=== PATIENT | female | born 1975 | race Caucasian/White ===

== ENCOUNTER 2017-03-28 08:01 | Emergency (ER) | payer SELFPAY ==
[~2017-03-28] VITALS: Ht 167.6 cm; Wt 96.3 kg
[~2017-03-28 08:01] MED LIST: ALPR-475 PO; FERR325T18 PO; TRAM-47 PO
[2017-03-28 08:02] VITALS: BP 141/92
[2017-03-28] MEDS ORDERED: FLUORESCEIN OPHTHALMIC 1 MG STRIP ONE (08:17)
[2017-03-28] MEDS ORDERED: PROPARACAINE OPHTH 0.5%, 15ML ONE (08:17)
== END 2017-03-28 08:48 | disposition home or self-care (01) ==
LOC: ED 08:39
DX: H11.421 Conjunctival edema, right eye (principal); H10.11 Acute atopic conjunctivitis, right eye
CPT/HCPCS: 99283

== ENCOUNTER 2017-08-12 08:56 | Emergency (ER) | payer SELFPAY ==
[~2017-08-12] VITALS: Ht 167.6 cm; Wt 94.9 kg
[2017-08-12] MEDS ORDERED: SODIUM CHLORIDE 0.9% 1,000 ML IV ONE (09:11)
[2017-08-12] MEDS ORDERED: ONDANSETRON 2MG/ML, 2ML IVPush ONE (09:30)
[2017-08-12] MEDS ORDERED: SODIUM CHLORIDE FLUSH 10ML SYR IVF ONE (09:30)
[2017-08-12 09:40] LABS: BASOPHILS # (AUTO) 0.03 x10^3/uL (0-0.1); BASOPHILS % (AUTO) 1 % (0-1); EOSINOPHILS % (AUTO) 3 % (1-7); LYMPHOCYTES # (AUTO) 1.18 x10^3/uL (1-3.4); LYMPHOCYTES % (AUTO) 29 % (22-44); MD NO; MEAN CORPUSCULAR HEMOGLOBIN 26.2 pg (27.0-34.8); MEAN CORPUSCULAR HGB CONC 33.7 g/dL (32.4-35.8); MEAN CORPUSCULAR VOLUME 77.8 fL (80-100); MEAN PLATELET VOLUME 7.4 fL (7.4-10.4); MONOCYTES # (AUTO) 0.27 x10^3/uL (0.2-0.8); MONOCYTES % (AUTO) 7 % (2-9); NEUTROPHILS # (AUTO) 2.44 x10^3/uL (1.8-6.8); NEUTROPHILS % (AUTO) 61 % (42-75); PLATELET COUNT 301 x10^3/uL (130-400); RED BLOOD COUNT 3.77 x10^6/uL (3.82-5.3)
[2017-08-12] MEDS ORDERED: HYDROmorphone 2 MG/ML, 1ML ONE ×4 (09:46→11:52)
[2017-08-12] MEDS ORDERED: ONDANSETRON 2MG/ML, 2ML ONE (09:46)
[2017-08-12 09:49] LABS: ALBUMIN 3.3 g/dL (3.4-5.0); ANION GAP 5 mmol/L (5-15); CALCIUM 8.2 mg/dL (8.5-10.1); CHLORIDE 110 mmol/L (98-107)
[2017-08-12 09:55] LABS: ALANINE AMINOTRANSFERASE 32 U/L (12-78); ALKALINE PHOSPHATASE 66 U/L (45-117); BILIRUBIN,TOTAL 0.4 mg/dL (0.2-1.0); CREATININE 0.62 mg/dL (0.55-1.02); TOTAL PROTEIN 6.7 g/dL (6.4-8.2)
[2017-08-12] MEDS: HYDROmorphone 1 MG/ML, 1ML IVPush PRN ×2 (09:58→12:11)
[2017-08-12 11:00] LABS: MICROSCOPIC NOT IND
[2017-08-12 11:03] LABS: CULTURE INDICATED? NO
[2017-08-12] MEDS ORDERED: OMNIPAQUE 350 MG/ML, 100ML BOTTLE ONE (11:10)
[2017-08-12 11:58] VITALS: BP 136/82
== END 2017-08-12 12:40 | disposition home or self-care (01) ==
LOC: ED 09:33
DX: L03.311 Cellulitis of abdominal wall (principal); D25.1 Intramural leiomyoma of uterus
CPT/HCPCS: 36415; 74177; 80053; 81003; 83690; 84703; 85025; 96361; 96374; 96375; 96376; 99285; G0260; J1170; J2405; J7030; Q9967

== ENCOUNTER 2018-11-13 19:06 | Emergency (ER) | payer OTHER ==
[~2018-11-13] VITALS: Ht 167.6 cm; Wt 95.0 kg
--- NOTE | 2018-11-13 19:43 | NUR ---
PT PRESENTS TO ED WITH SUPRAPUBIC PAIN X 5 DAYS. WORSE LAST 2 DAYS. PT STATES NAUSEA BUT DENIES VOMITING. STATES URINE HAS STRONG SMELL, BUT DENIES DYSURIA, PAINFUL URINATION, AND INCREASED FREQUENCY. MILD AMOUNT OF DISTRESS AND DISCOMFORT NOTED. PT SEEN IN PIT. URINE COLLECTED AND SENT TO LAB. AWAITING FURTHER EVAL AND ORDERS. WILL CONTINUE TO MONITOR.
[2018-11-13 19:48] LABS: BASOPHILS # (AUTO) 0.04 x10^3/uL (0-0.1); BASOPHILS % (AUTO) 1 % (0-1); EOSINOPHILS % (AUTO) 2 % (1-7); LYMPHOCYTES # (AUTO) 1.94 x10^3/uL (1-3.4); LYMPHOCYTES % (AUTO) 34 % (22-44); MD NO; MEAN CORPUSCULAR HEMOGLOBIN 25.3 pg (27.0-34.8); MEAN CORPUSCULAR HGB CONC 32.5 g/dL (32.4-35.8); MEAN CORPUSCULAR VOLUME 77.9 fL (80-100); MEAN PLATELET VOLUME 6.9 fL (7.4-10.4); MONOCYTES # (AUTO) 0.39 x10^3/uL (0.2-0.8); MONOCYTES % (AUTO) 7 % (2-9); NEUTROPHILS # (AUTO) 3.26 x10^3/uL (1.8-6.8); NEUTROPHILS % (AUTO) 57 % (42-75); PLATELET COUNT 327 x10^3/uL (130-400); RED BLOOD COUNT 3.97 x10^6/uL (3.82-5.3); RED CELL DISTRIBUTION WIDTH 16.4 % (9.6-15.2)
[2018-11-13 19:58] LABS: ALANINE AMINOTRANSFERASE 21 U/L (12-78); ALBUMIN 3.9 g/dL (3.4-5.0); ANION GAP 8 mmol/L (5-15); CALCIUM 8.6 mg/dL (8.5-10.1); CHLORIDE 108 mmol/L (98-107); CREATININE 0.69 mg/dL (0.55-1.02)
[2018-11-13] MEDS ORDERED: OXYcodone/APAP 5/325MG TABLET PO ONE (20:00)
[2018-11-13] MEDS ORDERED: ONDANSETRON ODT 4 MG PO ONE (20:00)
[2018-11-13 20:03] LABS: ALKALINE PHOSPHATASE 59 U/L (45-117); BILIRUBIN,TOTAL 0.4 mg/dL (0.2-1.0); TOTAL PROTEIN 7.4 g/dL (6.4-8.2)
[2018-11-13] MEDS ORDERED: ONDANSETRON ODT 4 MG ONE (20:15)
[2018-11-13] MEDS ORDERED: OXYcodone/APAP 5/325MG TABLET ONE (20:16)
--- NOTE | 2018-11-13 20:32 | NUR ---
PT BACK FROM US. PT MEDICATED PER Aug.29 RIGHTS VERIFIED PRIOR.
[2018-11-13 20:38] LABS: MICROSCOPIC NOT IND
[2018-11-13 20:43] LABS: CULTURE INDICATED? NO
--- NOTE | 2018-11-13 20:47 | NUR ---
RESULTS BACK. PT UP FOR RECHECK.
--- NOTE | 2018-11-13 21:05 | NUR ---
REPORT TO FLACA DEL VALLE.
[2018-11-13 21:51] VITALS: BP 140/88
== END 2018-11-13 21:52 | disposition home or self-care (01) ==
LOC: ED 21:26
DX: R10.33 Periumbilical pain (principal); R10.30 Lower abdominal pain, unspecified; Z86.73 Personal history of transient ischemic attack (TIA), and cerebral infarction without residual deficits
CPT/HCPCS: 36415; 76830; 80053; 81003; 83690; 84703; 85025; 99284

== ENCOUNTER → 2019-10-29 | Outpatient (CLI) | payer OTHER ==
[~2019-10-29] MED LIST changes: -ALPR-475 PO; +ALPR0.5T7 PO
== END | disposition home or self-care (01) ==
LOC: CFH 07:11
PROVIDERS: ATTEND Nurse Practitioner
DX: N64.52 Nipple discharge (principal)
CPT/HCPCS: 76642; 77066

== ENCOUNTER 2020-01-02 08:55 | Emergency (ER) | payer OTHER ==
[~2020-01-02] VITALS: Ht 167.6 cm; Wt 94.3 kg
--- NOTE | 2020-01-02 09:51 | NUR ---
BILINGUAL SALES REPRESENTATIVE: PT CURRENTLY IN US. TO GO TO ROOM UPON TEST COMPLETION.
--- NOTE | 2020-01-02 09:59 | NUR ---
PT NOT IN ROOM.
[2020-01-02] MEDS ORDERED: LISI1TAB23 PO (10:02)
[2020-01-02] MEDS ORDERED: ALBU18HF INH (10:02)
[2020-01-02] MEDS ORDERED: SERT-237 PO (10:02)
[2020-01-02] MEDS ORDERED: AZIT250T89 PO (10:02)
--- NOTE | 2020-01-02 10:13 | NUR ---
RAG ROOM SUPERVISOR: PT IN ROOM. DR KENYON AT BEDSIDE TO HARDEEP PT
[2020-01-02 10:43] LABS: BASOPHILS # (AUTO) 0.04 x10^3/uL (0-0.1); BASOPHILS % (AUTO) 1 % (0-1); EOSINOPHILS # (AUTO) 0.16 x10^3/uL (0-0.4); EOSINOPHILS % (AUTO) 4 % (1-7); LYMPHOCYTES % (AUTO) 27 % (22-44); MD NO; MEAN CORPUSCULAR HGB CONC 32.1 g/dL (32.4-35.8); MEAN CORPUSCULAR VOLUME 77.9 fL (80-100); MEAN PLATELET VOLUME 7.4 fL (7.4-10.4); MONOCYTES # (AUTO) 0.27 x10^3/uL (0.2-0.8); MONOCYTES % (AUTO) 7 % (2-9); NEUTROPHILS # (AUTO) 2.25 x10^3/uL (1.8-6.8); NEUTROPHILS % (AUTO) 61 % (42-75); PLATELET COUNT 278 x10^3/uL (130-400); RED BLOOD COUNT 3.91 x10^6/uL (3.82-5.3); RED CELL DISTRIBUTION WIDTH 16.8 % (9.6-15.2)
[2020-01-02 10:49] LABS: ALBUMIN 3.3 g/dL (3.4-5.0); ANION GAP 3 mmol/L (5-15); CALCIUM 8.6 mg/dL (8.5-10.1); CHLORIDE 110 mmol/L (98-107)
[2020-01-02 10:56] LABS: ALANINE AMINOTRANSFERASE 25 U/L (12-78); ALKALINE PHOSPHATASE 66 U/L (45-117); BILIRUBIN,TOTAL 0.4 mg/dL (0.2-1.0); CREATININE 0.57 mg/dL (0.55-1.02); TOTAL PROTEIN 6.9 g/dL (6.4-8.2)
--- NOTE | 2020-01-02 11:16 | NUR ---
PT AMBULATORY TO & FROM [facility] W/OUT INCIDENT; GAIT STEADY.
[2020-01-02 11:21] VITALS: BP 127/76
--- NOTE | 2020-01-02 11:21 | NUR ---
EKG AT BS
[2020-01-02 11:38] LABS: MICROSCOPIC NOT IND
== END 2020-01-02 11:41 | disposition home or self-care (01) ==
LOC: ED 10:08
DX: R10.13 Epigastric pain (principal); R11.2 Nausea with vomiting, unspecified
CPT/HCPCS: 36415; 76700; 80053; 81003; 83690; 84703; 85025; 93005; 99285

== ENCOUNTER 2020-09-06 19:49 | Emergency (ER) | payer SELFPAY ==
[~2020-09-06] VITALS: Ht 167.6 cm; Wt 100.0 kg
[~2020-09-06 19:49] MED LIST changes: +ALBU18HF INH; +AZIT250T89 PO; +LISI1TAB23 PO; +SERT-237 PO
--- NOTE | 2020-09-06 20:15 | NUR ---
PT C/O SHULTZ AND BLURRY VISION. SHULTZ STARTED THIS MORNING. DENIES N/V, MIGRAINE HX. 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 WEARS READING GLASSES AT [facility]. PT TEARY, RESP EVEN & UNLABORED, SPEECH CLEAR. ACETAMINOPHEN 500MG X 2 AT 1530 WITH MINIMAL RELIEF. LAST ORAL: 0330.
[2020-09-06] MEDS ORDERED: PROCHLORPERAZINE 5 MG/ML, 2ML ONE (21:17)
[2020-09-06] MEDS ORDERED: KETOROLAC 30 MG/1 ML ONE (21:17)
[2020-09-06] MEDS ORDERED: DIPHENHYDRAMINE 50 MG/ML, 1ML ONE (21:17)
[2020-09-06] MEDS ORDERED: SODIUM CHLORIDE FLUSH 10ML SYR IVF ONE (21:30)
[2020-09-06] MEDS ORDERED: DIPHENHYDRAMINE 50 MG/ML, 1ML IVPush ONE (21:30)
[2020-09-06] MEDS ORDERED: SODIUM CHLORIDE 0.9% 1,000ML IVBOLUS ONE (21:30)
[2020-09-06] MEDS ORDERED: PROCHLORPERAZINE 5 MG/ML, 2ML IVPush ONE (21:30)
[2020-09-06] MEDS ORDERED: KETOROLAC 30 MG/1 ML IVPush ONE (21:30)
--- NOTE | 2020-09-06 21:35 | NUR ---
NS HARRIETT. PT MEDICATED PER EMAR. IV SITE PATENT. SIDE RAILS UP X2, CALL LIGHT W/IN REACH. LEATHA MOOREGGKATRIN WARMER PROVIDED.
--- NOTE | 2020-09-06 22:02 | NUR ---
PT SLEEPING, RESP EVEN & UNLABORED. NS INFUSING W-O. SIDE RAILS UP X2, CALL LIGHT W/IN REACH.
--- NOTE | 2020-09-06 22:06 | NUR ---
REPORT FROM JOSE THAYERINTELLIGENCE DIRECTOR OF CARE. PER REPORT AWAITING DC PAPERS AND PT WILL BE OK TO GO HOME. NO FURTHER INTERVENTIONS TO BE DONE
--- NOTE | 2020-09-06 22:06 | NUR ---
PT ENDORSED TO FLACA SCHREER.
[2020-09-06 23:12] VITALS: BP 128/76
--- NOTE | 2020-09-06 23:13 | NUR ---
Patient/Caregiver given discharge instructions and they have confirmed that they understand the instructions. Patient ambulatory with steady gait. PIV DC
== END 2020-09-06 23:22 | disposition home or self-care (01) ==
LOC: ED 23:16
DX: G43.109 Migraine with aura, not intractable, without status migrainosus (principal); I10 Essential (primary) hypertension; Z86.73 Personal history of transient ischemic attack (TIA), and cerebral infarction without residual deficits
CPT/HCPCS: 93005; 96361; 96374; 96375; 99284; J0780; J1200; J1885; J7030

== ENCOUNTER 2021-02-01 06:30 | Emergency (ER) | payer OTHER ==
[~2021-02-01] VITALS: Ht 167.6 cm; Wt 105.3 kg
--- NOTE | 2021-02-01 07:09 | NUR ---
PT WITH C/O RLQ PAIN X2 DAYS. DENIES N/V, STATES FEW EPISODES OF DIARRHEA. PT STATES SHE IS SPOTTING AND SHOULD BE ON HER PERIOD AT THIS TIME. STRAIGHT CATH PERFORMED, PIV INITIATED AND LABS DRAWN AND SENT TO LAB.
[2021-02-01 07:29] LABS: ALANINE AMINOTRANSFERASE 27 U/L (12-78); ALBUMIN 3.2 g/dL (3.4-5.0); ANION GAP 6 mmol/L (5-15); CHLORIDE 107 mmol/L (98-107); CREATININE 0.56 mg/dL (0.55-1.02)
[2021-02-01 07:31] LABS: BASOPHILS % (AUTO) 1 % (0-1); EOSINOPHILS % (AUTO) 3 % (1-7); LYMPHOCYTES % (AUTO) 29 % (22-44); MEAN CORPUSCULAR HEMOGLOBIN 26.5 pg (27.0-34.8); MEAN CORPUSCULAR HGB CONC 33.1 g/dL (32.4-35.8); MEAN PLATELET VOLUME 7.8 fL (7.4-10.4); MONOCYTES % (AUTO) 7 % (2-9); NEUTROPHILS % (AUTO) 60 % (42-75); PLATELET COUNT 253 x10^3/uL (130-400); RED BLOOD COUNT 3.76 x10^6/uL (3.82-5.3); RED CELL DISTRIBUTION WIDTH 16.2 % (9.6-15.2)
[2021-02-01 07:34] LABS: ALKALINE PHOSPHATASE 68 U/L (45-117); BILIRUBIN,TOTAL 0.3 mg/dL (0.2-1.0); TOTAL PROTEIN 6.9 g/dL (6.4-8.2)
[2021-02-01 07:35] LABS: MICROSCOPIC NOT IND
[2021-02-01] MEDS ORDERED: OMNIPAQUE 350 MG/ML, 100ML BOTTLE ONE (08:17)
--- NOTE | 2021-02-01 08:27 | NUR ---
TASK RN NOTE: PT RESTING IN BED, RESPIRATIONS EVEN AND UNLABORED SATURATING WELL ON RA. NAD NOTED. AWAITING CT RESULTS.
[2021-02-01] MEDS ORDERED: KETOROLAC 30 MG/1 ML ONE (09:39)
[2021-02-01 09:42] VITALS: BP 120/65
[2021-02-01] MEDS ORDERED: KETOROLAC 30 MG/1 ML IVPush ONE (10:00)
== END 2021-02-01 10:06 | disposition home or self-care (01) ==
LOC: ED 06:52
DX: N83.292 Other ovarian cyst, left side (principal); D25.9 Leiomyoma of uterus, unspecified; R10.31 Right lower quadrant pain; R11.0 Nausea; I10 Essential (primary) hypertension
CPT/HCPCS: 36415; 74177; 76830; 80053; 81003; 83690; 84703; 85025; 96374; 99285; J1885; Q9967

== ENCOUNTER 2021-02-05 08:13 | Emergency (ER) | payer OTHER ==
[~2021-02-05] VITALS: Ht 167.6 cm; Wt 104.0 kg
[2021-02-05] MEDS ORDERED: SERT100T32 PO (09:01)
[2021-02-05] MEDS ORDERED: LISI1TAB39 PO (09:01)
--- NOTE | 2021-02-05 09:07 | NUR ---
coil cleaner completed as documented. Awaiting MD exam. Call light in reach. [place] offered but declined.
--- NOTE | 2021-02-05 09:25 | NUR ---
PA at bedside for exam.
[2021-02-05] MEDS ORDERED: HYDROcodone/APAP 5/325 TABLET PO ONE (09:30)
[2021-02-05] MEDS ORDERED: ONDANSETRON ODT 4 MG PO ONE (09:30)
[2021-02-05] MEDS ORDERED: CYCLOBENZAPRINE 10 MG TABLET PO ONE (09:30)
[2021-02-05] MEDS ORDERED: KETOROLAC 30 MG/1 ML IM ONE (09:30)
[2021-02-05] MEDS ORDERED: ONDANSETRON ODT 4 MG ONE (10:07)
[2021-02-05] MEDS ORDERED: HYDROcodone/APAP 5/325 TABLET ONE (10:08)
[2021-02-05] MEDS ORDERED: KETOROLAC 30 MG/1 ML ONE (10:08)
[2021-02-05 10:13] LABS: BASOPHILS % (AUTO) 1 % (0-1); EOSINOPHILS % (AUTO) 4 % (1-7); LYMPHOCYTES % (AUTO) 32 % (22-44); MEAN CORPUSCULAR HEMOGLOBIN 26.4 pg (27.0-34.8); MEAN CORPUSCULAR HGB CONC 33.2 g/dL (32.4-35.8); MEAN PLATELET VOLUME 7.2 fL (7.4-10.4); MONOCYTES % (AUTO) 6 % (2-9); NEUTROPHILS % (AUTO) 57 % (42-75); PLATELET COUNT 274 x10^3/uL (130-400); RED BLOOD COUNT 3.76 x10^6/uL (3.82-5.3)
[2021-02-05] MEDS ORDERED: CYCLOBENZAPRINE 10 MG TABLET ONE (10:21)
--- NOTE | 2021-02-05 10:23 | NUR ---
UA sent and pt medicated as ordered.
[2021-02-05 10:25] LABS: ALANINE AMINOTRANSFERASE 25 U/L (12-78); ALBUMIN 3.2 g/dL (3.4-5.0); ANION GAP 3 mmol/L (5-15); CALCIUM 8.3 mg/dL (8.5-10.1); CHLORIDE 109 mmol/L (98-107); CREATININE 0.52 mg/dL (0.55-1.02)
[2021-02-05 10:27] LABS: ALKALINE PHOSPHATASE 63 U/L (45-117); BILIRUBIN,TOTAL 0.5 mg/dL (0.2-1.0); TOTAL PROTEIN 6.6 g/dL (6.4-8.2)
--- NOTE | 2021-02-05 11:45 | NUR ---
Pt reassessed after media supervisor with some effect noted. Awaiting UA results and pt aware of this.
[2021-02-05 12:30] LABS: MICROSCOPIC NOT IND
[2021-02-05 13:02] VITALS: BP 126/82
== END 2021-02-05 13:04 | disposition home or self-care (01) ==
LOC: ED 08:57
DX: M13.151 Monoarthritis, not elsewhere classified, right hip (principal); I10 Essential (primary) hypertension; Z86.73 Personal history of transient ischemic attack (TIA), and cerebral infarction without residual deficits
CPT/HCPCS: 36415; 73502; 80053; 81003; 85025; 96372; 99284; J1885; Q0162

== ENCOUNTER 2021-02-14 15:03 | Emergency (ER) | payer OTHER ==
[~2021-02-14] VITALS: Ht 167.6 cm; Wt 104.0 kg
[~2021-02-14 15:03] MED LIST changes: +LISI1TAB39 PO; +SERT100T32 PO
--- NOTE | 2021-02-14 15:43 | NUR ---
PT C/O RIGHT SIDE CHEST PAIN RADIATES TO SHOULDER AND BACK, SOB, AND NAUSEA YESTERDAY. PT A&O, RESPS EVEN AND UNLABORED, VSS, ALL MONITORS ATTACHED, NSR, NADN.
[2021-02-14] MEDS ORDERED: KETOROLAC 30 MG/1 ML ONE (15:55)
[2021-02-14] MEDS ORDERED: CYCLOBENZAPRINE 10 MG TABLET ONE (15:56)
[2021-02-14] MEDS ORDERED: KETOROLAC 30 MG/1 ML IM ONE (16:00)
[2021-02-14] MEDS ORDERED: CYCLOBENZAPRINE 10 MG TABLET PO ONE (16:00)
[2021-02-14 16:04] VITALS: BP 150/110
--- NOTE | 2021-02-14 16:18 | NUR ---
pt medicated per order, tolerated well, vss, nadn.
[2021-02-14 16:22] LABS: BASOPHILS % (AUTO) 1 % (0-1); EOSINOPHILS % (AUTO) 4 % (1-7); LYMPHOCYTES % (AUTO) 36 % (22-44); MEAN PLATELET VOLUME 7.4 fL (7.4-10.4); MONOCYTES % (AUTO) 7 % (2-9); NEUTROPHILS % (AUTO) 52 % (42-75); PLATELET COUNT 285 x10^3/uL (130-400); RED BLOOD COUNT 3.78 x10^6/uL (3.82-5.3); RED CELL DISTRIBUTION WIDTH 16.3 % (9.6-15.2)
[2021-02-14 16:28] LABS: ALANINE AMINOTRANSFERASE 25 U/L (12-78); ALBUMIN 3.5 g/dL (3.4-5.0); ANION GAP 7 mmol/L (5-15); CALCIUM 8.8 mg/dL (8.5-10.1); CHLORIDE 108 mmol/L (98-107); CREATININE 0.56 mg/dL (0.55-1.02)
[2021-02-14 16:33] LABS: ALKALINE PHOSPHATASE 67 U/L (45-117); BILIRUBIN,TOTAL 0.3 mg/dL (0.2-1.0); TROPONIN I < 0.015 ng/mL (0.000-0.045)
--- NOTE | 2021-02-14 17:14 | NUR ---
ermd at bedside to discuss results and poc
--- NOTE | 2021-02-14 17:34 | NUR ---
nadine loomis walked to lab, pt educated on dc instructions, verbalized undertsanding. ambulatory to dc desk with steady gait.
== END 2021-02-14 17:36 | disposition home or self-care (01) ==
LOC: ED 17:10
DX: R07.89 Other chest pain (principal); M62.838 Other muscle spasm; D53.9 Nutritional anemia, unspecified; Z20.822 Contact with and (suspected) exposure to COVID-19; I10 Essential (primary) hypertension; G43.909 Migraine, unspecified, not intractable, without status migrainosus; Z86.73 Personal history of transient ischemic attack (TIA), and cerebral infarction without residual deficits; Z88.0 Allergy status to penicillin
CPT/HCPCS: 36415; 71045; 80053; 84484; 84703; 85025; 93005; 96372; 99285; J1885; U0003; U0005